=== PATIENT | female | born 2000 | race Caucasian/White ===

== ENCOUNTER 2021-03-08 13:13 | Emergency (ER) | payer MEDICAID ==
[2021-03-08] MEDS ORDERED: levETIRAcetam 500 MG/5 ML Solution ML 473 ml Bottle PO ONE (14:00)
[2021-03-08] MEDS ORDERED: levETIRAcetam 250 MG Tab PO ONE (14:30)
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
--- NOTE | 2021-03-10 09:23 | CR ---
Shoulder Comp Rt CLINICAL HISTORY: Trauma FINDINGS: There is no acute fracture or dislocation in the right shoulder. Articular surfaces are smooth. Impression: Negative
== END 2021-03-08 15:09 | disposition home or self-care (01) ==
LOC: JP.ED 13:13
DX: S40.011A Contusion of right shoulder, initial encounter (principal); G40.909 Epilepsy, unspecified, not intractable, without status epilepticus; Z88.8 Allergy status to other drugs, medicaments and biological substances; Z91.048 Other nonmedicinal substance allergy status; Z88.0 Allergy status to penicillin; E66.9 Obesity, unspecified; Z72.0 Tobacco use; Z68.28 Body mass index [BMI] 28.0-28.9, adult; V86.59XA Driver of other special all-terrain or other off-road motor vehicle injured in nontraffic accident, initial encounter
CPT/HCPCS: 36415; 73030; 80053; 85025; 99284; A9270